=== PATIENT | female | born 1975 | race Native Hawaiian/Other Pacific Islander ===

== ENCOUNTER 2016-11-16 13:19 | Outpatient (CLI) | payer OTHER | END 2016-11-16 20:05 | disposition home or self-care (01) | LOC: MRD 13:19 | PROVIDERS: ATTEND Obstetrics & Gynecology | PROC: BY49ZZZ Ultrasonography of First Trimester, Single Fetus (ICD-10-PCS; principal; 2016-11-16) | DX: O20.0 Threatened abortion (principal); O46.91 Antepartum hemorrhage, unspecified, first trimester; Z3A.13 13 weeks gestation of pregnancy; O09.521 Supervision of elderly multigravida, first trimester ==